=== PATIENT | male | born 1960 | race Caucasian/White ===

== ENCOUNTER → 2020-10-12 08:48 | Outpatient (BNVA) | payer SELFPAY | PROVIDERS: Family Provider Family Medicine; Referring Provider Internal Medicine; Visit Provider Dermatology | DX: Z01.89 Encounter for other specified special examinations (principal) ==

== ENCOUNTER → 2020-10-13 15:22 | Outpatient (BNVA) | payer SELFPAY | PROVIDERS: Family Provider Family Medicine; Referring Provider Internal Medicine; Visit Provider Dermatology | DX: Z01.89 Encounter for other specified special examinations (principal) ==

== ENCOUNTER → 2020-10-18 15:15 | Outpatient (BNVA) | payer OTHER, SELFPAY | PROVIDERS: Family Provider Family Medicine; Referring Provider Internal Medicine; Visit Provider Specialist | DX: M79.642 Pain in left hand (principal); M67.441 Ganglion, right hand | CPT/HCPCS: 73110 ==

== ENCOUNTER → 2020-10-20 09:04 | Outpatient (BNVA) | payer OTHER, SELFPAY | PROVIDERS: Family Provider Family Medicine; Referring Provider Internal Medicine; Visit Provider Specialist | DX: M79.642 Pain in left hand (principal); M67.441 Ganglion, right hand; M79.643 Pain in unspecified hand; M79.641 Pain in right hand | CPT/HCPCS: 80053; 85025; 85651; 86140; 86160; 86162; 86235; 86255; 86376; 86431 ==

== ENCOUNTER → 2020-11-15 10:09 | Outpatient (BNVA) | payer OTHER, SELFPAY | PROVIDERS: Family Provider Family Medicine; Referring Provider Specialist; Visit Provider Specialist | DX: M67.441 Ganglion, right hand (principal); G56.22 Lesion of ulnar nerve, left upper limb; M79.641 Pain in right hand; M79.642 Pain in left hand | CPT/HCPCS: 95886; 95910; 99202 ==